=== PATIENT | male | born 1970 | race Hispanic/Latino ===

== ENCOUNTER 2020-05-31 07:50 | Outpatient (CLI) | payer BC, OTHER ==
--- NOTE | 2020-05-31 08:45 | MRI ---
MRI lumbar spine noncontrast: HISTORY: Lumbar radiculopathy. Right leg numbness and pain for one month. COMPARISON: None FINDINGS: Appropriate T1 marrow signal intensity of the lumbar vertebra. Vertebral body heights are maintained. No fracture. No significant STIR hyperintensity to suggest ligamentous injury or vertebral body edema Appropriate signal intensity visualized paraspinal muscles and solid organs. Conus medullaris terminates at the superior endplate of L1. T12-L1:Adequate disc hydration. No posterior disc abnormality. No significant central canal stenosis or significant neural foraminal narrowing L1-L2:Adequate disc hydration. No posterior disc abnormality. No significant central canal stenosis o r significant neural foraminal narrowing L2-L3:Adequate disc hydration. No posterior disc abnormality. No significant central canal stenosis o r significant neural foraminal narrowing L3-L4:Adequate disc hydration. No posterior disc abnormality. No significant central canal stenosis o r significant neural foraminal narrowing L4-L5:Adequate disc hydration. No posterior disc abnormality. No significant central canal stenosis o r significant neural foraminal narrowing L5-S1:Disc desiccation with moderate loss of disc space height. Broad-based disc bulge abuts the vent ral thecal sac. Minimal encroachment upon bilateral subarticular zones. No significant obscuration of either traversing S1 nerve root. Moderate bilateral neural foraminal narrowing predominantly due t o disc material. There is mild bilateral facet hypertrophy with a trace amount of fluid in both facet joints. IMPRESSION: 1. Degenerative disc disease at L5-S1. Moderate bilateral neural foraminal narrowing.
== END 2020-05-31 07:51 | disposition home or self-care (01) ==
LOC: TBSIIMAG 07:50
PROVIDERS: ATTEND Family Medicine
DX: M54.16 Radiculopathy, lumbar region (principal); M51.37 Other intervertebral disc degeneration, lumbosacral region; M48.061 Spinal stenosis, lumbar region without neurogenic claudication
CPT/HCPCS: 72148

== ENCOUNTER 2021-11-02 12:48 | Outpatient (CLI) | payer BC | END 2021-11-02 12:49 | disposition home or self-care (01) | LOC: TBSIIMAG 12:48 | PROVIDERS: ATTEND Neurological Surgery | DX: M51.16 Intervertebral disc disorders with radiculopathy, lumbar region (principal); M47.26 Other spondylosis with radiculopathy, lumbar region; M47.27 Other spondylosis with radiculopathy, lumbosacral region; M47.25 Other spondylosis with radiculopathy, thoracolumbar region; Z00.00 Encounter for general adult medical examination without abnormal findings | CPT/HCPCS: 36415; 72148; 80053; 80061; 83036; 84443; 85025; G0103 ==

== ENCOUNTER 2025-04-28 12:02 | Emergency (ER) | payer OTHER ==
[2025-04-28] MEDS ORDERED: Tenecteplase 50 MG ONE (12:51)
[2025-04-28 13:26] LABS: #Basophils 0.05 10x3/uL (0.0-0.2); #Eosinophils Less than 0.03 10x3/uL (0.0-0.7); #Monocytes 0.34 10x3/uL (0.11-0.59); #Neutrophils 6.88 10x3/uL (1.40-6.50); %Basophils 0.6 % (0.0-1.0); %Eosinophils 0.1 % (0.0-10.0); %Lymphocytes 15.5 % (21.0-51.0); %Monocytes 3.9 % (0.0-10.0); %Neutrophils 79.7 % (42.0-75.0); Hematocrit 44.7 % (42.0-52.0); Hemoglobin 14.6 g/dL (14.0-18.0); Mean Corpuscular Hemoglobin 28.1 pg (27.0-31.0); Mean Corpuscular Volume 86.0 fL (78.0-98.0); Platelet Count 312 10x3/uL (130-400); Red Blood Cell (RBC) Count 5.20 mill/uL (4.70-6.10); White Blood Cell (WBC) Count 8.64 10x3/uL (4.8-10.8)
[2025-04-28 13:40] LABS: INR-International Normal Ratio 1.2; Prothrombin Time 14.8 sec (12.0-14.7)
[2025-04-28 13:41] LABS: PTT 37.0 sec (22.9-36.1)
[2025-04-28 13:52] LABS: ALT (SGPT) 18 U/L (Less than 45); AST (SGOT) 24 U/L (11-34); Acetaminophen Less than 10 mcg/mL (Less than 10); Albumin 4.1 g/dL (3.1-4.5); Alkaline Phosphatase 36 U/L (40-110); Anion Gap 15 mmol/L (10-20); BUN (Urea Nitrogen) 11 mg/dL (8.4-25.7); Bilirubin, Total 0.5 mg/dL (0.3-1.2); Calc. Creatinine Clearance 0 mL/min (70-130); Calcium 8.9 mg/dL (7.8-10.44); Carbon Dioxide 22 mmol/L (22-29); Chloride 103 mmol/L (98-107); Globulin 2.4 g/dL (2.4-3.5); Glucose 85 mg/dL (70-105); Potassium 3.8 mmol/L (3.5-5.1); Salicylate Less than 8.0 mg/dL (Less than 8.0); Sodium 136 mmol/L (136-145)
[2025-04-28] MEDS ORDERED: Iopamidol-370 76% 500 ML MDV (1 ML CHARGE) ONE (14:35)
[2025-04-28 14:55] LABS: Cocaine Metabolite Screen Negative (Negative); THC/Cannabinoid Screen Negative (Negative); Tricyclic Screen Negative (Negative)
== END 2025-04-28 14:36 ==
LOC: ERS 12:02
DX: I63.9 Cerebral infarction, unspecified (principal); F17.210 Nicotine dependence, cigarettes, uncomplicated
CPT/HCPCS: 36416; 37195; 70450; 70496; 70498; 71045; 80053; 80306; 80307; 83605; 84484; 85025; 85610; 85730; 86141; 93005; 94760; 95812; J3101; Q9967